=== PATIENT | male | born 1945 | race Two or more races ===

== ENCOUNTER 2022-07-25 19:25 | Emergency (ER) | payer MEDICARE, MEDICAID ==
[~2022-07-25] VITALS: Ht 182.9 cm; Wt 77.3 kg
[~2022-07-25 19:25] MED LIST: AMLO-139 PO; CHOL200074 PO; FLO0.4C PO; METF500T PO; PANT40TA54 PO; PRAV20TA4 PO; PRED5TAB PO; QUET25TA PO; TRAM50TA2 PO; VALS1TAB4 PO
[2022-07-25] MEDS ORDERED: normal saline 1000ML IV soln IVB ONE (20:50)
[2022-07-25 21:28] LABS: BASOPHILS % (AUTO) 0.5 % (0-1); EOSINOPHILS % (AUTO) 0.4 % (0-6); HEMATOCRIT 42.1 % (42.0-52.0); HEMOGLOBIN 14.4 g/dl (14.0-17.9); LYMPHOCYTES # (AUTO) 0.9 X10'3 (1.1-4.8); LYMPHOCYTES % (AUTO) 12.3 % (21-51); MEAN CORPUSCULAR HEMOGLOBIN 30.7 PG (27.0-31.0); MEAN CORPUSCULAR HGB CONC 34.3 g/dL (33.0-36.5); MEAN CORPUSCULAR VOLUME 89.8 FL (78-98); MEAN PLATELET VOLUME 8.5 FL (7.4-10.4); MONOCYTES # (AUTO) 0.8 X10'3 (0-0.9); MONOCYTES % (AUTO) 10.5 % (2-12); NEUTROPHILS # (AUTO) 5.8 X10'3 (1.8-7.7); NEUTROPHILS % (AUTO) 76.3 % (42-75); PLATELET COUNT 158 X10'3 (140-440); RED BLOOD COUNT 4.69 X10'6 (4.70-6.10); RED CELL DISTRIBUTION WIDTH 14.5 % (11.5-14.5); WHITE BLOOD COUNT 7.6 X10'3 (4.5-11.0)
[2022-07-25 21:43] LABS: ALANINE AMINOTRANSFERASE 27 U/L (12-78); ALBUMIN 3.7 G/DL (3.4-5.0); ALBUMIN/GLOBULIN RATIO 1.1 (1.1-1.5); ALKALINE PHOSPHATASE 90 IU/L (46-116); ANION GAP 5 (8-16); ASPARTATE AMINO TRANSFERASE 22 U/L (10-37); BILIRUBIN,TOTAL 0.5 MG/DL (0.1-1.0); BLOOD UREA NITROGEN 23 MG/DL (7-18); BUN/CREATININE RATIO 21.7 (10.0-20.0); CALCIUM 8.9 MG/DL (8.5-10.1); CHLORIDE 103 MMOL/L (99-107); CREATININE 1.06 MG/DL (0.60-1.10); GLUCOSE 145 MG/DL (70-104); POTASSIUM 3.8 MMOL/L (3.5-5.1); SODIUM 135 MMOL/L (135-145); TOTAL CARBON DIOXIDE 26.8 MMOL/L (24-32); eGFR 68 ML/MIN
[2022-07-25 21:46] LABS: CREATINE KINASE 338 U/L (39-308)
[2022-07-25 21:55] LABS: CLARITY,URINE SLIGHTLY CLOUDY (Clear); COLOR,URINE YELLOW (Yellow); GLUCOSE, URINE NEGATIVE (Neg); KETONES,URINE NEGATIVE (Neg); LEUKOCYTE ESTERASE ,URINE MODERATE (Neg); NITRITES, URINE NEGATIVE (Neg); OCCULT BLOOD,URINE TRACE-INTACT (Neg); PROTEIN,URINE TRACE mg/dl (Neg); UROBILINOGEN,URINE 0.2 E.U/dL (0.2-1.0)
[2022-07-25 21:56] LABS: UA COLLECTION TYPE URINAL
[2022-07-25 22:01] LABS: BACTERIA,URINE 4+ /HPF (Neg); MUCUS STRANDS FEW /LPF (Neg); RBC,URINE 0-2 /HPF (0-2); SQUAMOUS EPITHELIAL CELL,UR FEW /LPF (FEW); TRANSITIONAL EPI CELLS,URINE FEW /HPF; WBC,URINE TNTC /HPF (0-4)
[2022-07-25] MEDS ORDERED: CefTRIAXone/D5W-Rocephin 1gm 50 ML IV ONE (22:25)
[2022-07-25] MEDS ORDERED: CEPH250T PO (22:50)
[2022-07-25 23:03] VITALS: BP 129/75
[2022-07-26] MEDS ORDERED: CefTRIAXone/D5W-Rocephin 1gm 50 ML IV SCH (08:00)
== END 2022-07-25 23:05 | disposition home or self-care (01) ==
LOC: ER 19:25
DX: R53.1 Weakness (principal); N39.0 Urinary tract infection, site not specified; R41.0 Disorientation, unspecified; R55 Syncope and collapse; E11.9 Type 2 diabetes mellitus without complications; Z79.899 Other long term (current) drug therapy; Z79.1 Long term (current) use of non-steroidal anti-inflammatories (NSAID); Z79.2 Long term (current) use of antibiotics
CPT/HCPCS: 36415; 70450; 71045; 80053; 81001; 82550; 84484; 85025; 87077; 87088; 87186; 93005; 96361; 96365; 99285; J0696; J7030

== ENCOUNTER 2023-04-06 09:22 | Outpatient (CLI) | payer MEDICARE, MEDICAID ==
[~2023-04-06] VITALS: Ht 218.4 cm; Wt 77.0 kg
[2023-04-06] VITALS (7 sets, daily range): BP systolic 128–153; BP diastolic 65–70; PULSE 63–89; RESP 18; O2SAT 100
[2023-04-06] MEDS ORDERED: aminophylline 250mg/10ml inj. IV PRN (10:55)
[2023-04-06] MEDS ORDERED: regadenoson 0.4mg/5ml syringe IV ONE (10:55)
[2023-04-06] MEDS ORDERED: nitroGLYCERIN 0.4mg SUBLingual tab SL PRN (10:55)
== END 2023-04-06 23:59 | disposition home or self-care (01) ==
LOC: NM 09:22
PROVIDERS: ATTEND Internal Medicine Interventional Cardiology
DX: R06.02 Shortness of breath (principal); R07.2 Precordial pain
CPT/HCPCS: 78452; 93017; A9500; J2785

== ENCOUNTER 2025-02-15 14:52 | Inpatient (IN) | payer MEDICARE, MEDICAID ==
[~2025-02-15] VITALS: Ht 175.3 cm; Wt 71.7 kg
[~2025-02-15 14:52] MED LIST changes: -FLO0.4C PO; +PRAV20TA17 PO; -PRAV20TA4 PO; +TAMS-55 PO
--- NOTE | 2025-02-15 15:01 | ELECTROCARDIOGRAPH REPORT ---
[facility] Test Date: 2025-02-15 Test Time: 14:56:26 Pat Name: NOAH WALKER Department: EMERGENCY ROOM Room: ED 8 Gender: M [employer]: CORY : 1945 Requested By: MIKEL MATA Order Number: [id number] Reading MD: Dr. Marcelino Trejo Measurements Intervals [place] Rate: 105 P: 63 MA: 177 QRS: 18 QRSD: 91 T: 25 QT: 344 QTc: 455 Interpretive Statements Sinus tachycardia Electronically Signed On 02-15-2025 18:10:[address] Marcelino Trejo Please click the below link to view image of tracing.
[2025-02-15 15:20] LABS: MEAN PLATELET VOLUME 9.0 FL (7.4-10.4); RED CELL DISTRIBUTION WIDTH 14.3 % (11.5-14.5)
[2025-02-15 15:31] LABS: CREATININE 0.98 MG/DL (0.60-1.10); TOTAL CARBON DIOXIDE 23.4 MMOL/L (24-32); eCRCL 54 ML/MIN; eGFR 74 ML/MIN
[2025-02-15 15:39] LABS: LEUKOCYTE ESTERASE ,URINE SMALL (Neg); NITRITES, URINE NEGATIVE (Neg); OCCULT BLOOD,URINE MODERATE (Neg)
[2025-02-15] MEDS: normal saline 1000ml 1,000 ML IV ONE ×2 (15:41→18:34)
[2025-02-15 15:42] LABS: PRO BRAIN NATRIURETIC PEPTIDE 443 PG/ML (0-450)
[2025-02-15 15:45] LABS: UA COLLECTION TYPE FOLEY CATH
[2025-02-15 15:47] LABS: MUCUS STRANDS NONE SEEN /LPF (Neg); SQUAMOUS EPITHELIAL CELL,UR NONE SEEN /LPF (FEW); WBC CLUMPS,URINE MANY /HPF (NEGATIVE)
--- NOTE | 2025-02-15 15:48 | RADIOLOGY REPORT ---
CHEST RADIOGRAPH Indication: CP Technique: Single frontal view of the chest was obtained Comparison: CHEST,SINGLE VIEW on DOS: 07/25/22, CHEST,SINGLE VIEW on DOS: 10/16/20 FINDINGS: Lines and Tubes: None Lungs: Blunting of the left costophrenic angle. Bronchovascular crowding due 2 low lung volumes. No pneumothorax. Cardiomediastinal contours: Size is within Normal limits with Mild atherosclerotic calcification and uncoiling of the aorta. Bones: No acute osseous abnormality. IMPRESSION: Blunting of the left costophrenic angle which may be from epicardial fat pad /trace effusion /atelectasis.
--- NOTE | 2025-02-15 15:48 | RADIOLOGY REPORT ---
DI SHOULDER, COMPLETE (MIN 2 VWS), left. Indication: 79 years old, Male; Shoulder Pain. Comparison: None Findings: No acute fracture or dislocation. Degenerative changes of AC joint and glenohumeral joint. IMPRESSION: NO ACUTE FRACTURE OR DISLOCATION.
[2025-02-15] MEDS: CefTRIAXone/D5W-Rocephin 1gm 50 ML IV ONE (16:07)
[2025-02-15] MEDS ORDERED: ondansetron/PF 4mg/2ml inj IV PRN (17:15)
[2025-02-15] MEDS: CefTRIAXone/D5W-Rocephin 1gm 50 ML IV SCH (17:35)
[2025-02-15 17:49] LABS: APTT 26 SECONDS (22-32); INR 1.0 INR
[2025-02-15 17:58] LABS: CHOL/HDL RATIO 4.7 (0.00-4.99); LDL CHOLESTEROL 56 MG/DL (50-100)
--- NOTE | 2025-02-15 17:58 | HISTORY AND PHYSICAL-Residence ---
History & Physical Providers to CC Resident Creating Document: YENNY ISIDRO, RES CC: ASHLEY MONAHAN MD ~ History of Present Illness Primary Medical Doctor: [facility] Reason for Admit\Complaint: Mechanical fall, rhabdomyolysis, UTI History of Present Illness An 79-year-old male patient who lives by himself was brought to the ED by his daughter after he was found lying on his floor. Patient's daughter last spoke with him yesterday evening and since then he was not answering any calls and she visited him and found him lying on the floor. Patient did not lose consciousness and was awake when his daughter came. Patient stated that he was trying to get up from his wheelchair but lost balance and fell on the ground but could not get himself up nor could he answer his phone which was little away from him. Patient denied any chest pain,, shortness of breath , loss of consciousness and syncopal attacks. His past medical history includes hypertension, hyperlipidemia, diabetes mellitus on oral hypoglycemics. Patient has an indwelling catheter and is wheelchair-bound most of the time Patient lives by himself, uses a walker for moving around the house and uses a wheelchair for other activities. Patient's daughters stays across the street and visits him once a while, patient has home health services who come visit with the patient change his catheter as required. Patient's daughter is his I HSS Patient's primary care doctor is from [facility], patient's seafood packer is Dr. Bridgette Ceja Patient visits Dr. Ceja once every year for regular cardiac checkup. He was admitted in 2023 with chest pain and a Lexiscan was done at the point which was negative Allergies: Coded Allergies: No Known Allergies (Unverified , 07/25/22) Home Medications Home Medications Active Pantoprazole Sodium 40 Mg Tablet. 40 Mg PO BKF Reported Diovan Hct 160-12.5 mg Tab (Valsartan/Hydrochlorothiazide) 1 Each Tablet 1 Tab PO BID 30 Days Amlodipine-Benazepril 10/40 MG* (Amlodipine/Benazepril HCl) 10 Mg/40 Mg Capsule 1 Cap PO DAILY Pravastatin Sodium 20 Mg Tablet 1 Tab PO DAILY 30 Days Glucophage* (Metformin HCl) 500 Mg Tablet 1 Tab PO TID Prednisone* (Prednisone) 5 Mg Tablet 4 Tab PO DAILY Vitamin D3 (Cholecalciferol (Vitamin D3)) 50 Mcg Capsule 1 Cap PO DAILY 30 Days Flomax* (Tamsulosin HCl) 0.4 Mg Cap.sr.24h 1 Cap PO DAILY 30 Days Tramadol Hcl (Tramadol HCl) 50 Mg Tablet 1 Tab PO BID 30 Days Seroquel (Quetiapine Fumarate) 25 Mg Tablet 1 Tab PO DAILY Past Medical History Past Medical History Hypertension Hyperlipidemia Diabetes mellitus on oral hypoglycemics Insomnia Past Surgical History Surgical History Comment Abdominal surgery in 2019 for an abscess removal in his liver Patient had a back surgery two years ago, unsure about what exactly was the procedure Past Social History Social History Comment Patient lives by himself, his daughter lives across stated in visited with the patient Patient uses a walker for short distances and wheelchair for longer distances Patient smokes 1-2 cigarettes per day, used to smoke about 5-6 cigarettes for the last 40 years decrease it to 1-2 cigarettes Patient stopped drinking in 1999, used to occasionally drink alcohol before that Patient denied any other illicit drug use Lives with: Alone Lives In: Home ROS ROS Constitutional: No fever, dizziness, weakness noted, no decrease in appetite HEENT: Normal vision. No sore throat, epistaxis, tinnitus Cardiovascular: Mild chest pain/discomfort, no palpitations, syncope. no pedal edema Respiratory: No sob, cough,hemoptysis Gastrointestinal: No abdominal pain, nausea, vomiting. No diarrhea, melena. Genitourinary: No frquency, urgency, incontinence, nocturia. No dysuria, hematuria Musculoskeletal: Wasting of lower extremities, bilateral chronic venous stasis of lower extremities Endocrine: No fatigue, polydipsia, polyuria. No heat or cold intolerance Neurologic: No headache, vertigo. No weakness, numbness or tingling of extremities, mild confusion noted Psychiatric: No hallucinations/delusions, no anhedonia, no suicidal ideation Hematologic: Bruises present on chest left shoulder,bilateral knees Exam Vitals: Vital Signs Date Time Temp Pulse Resp B/P (MAP) Pulse Ox O2 Delivery O2 Flow Rate FiO2 02/15/25 17:13 19 02/15/25 16:59 98.1 97 97 0 02/15/25 15:28 Room Air* 21 General: General: A and O x1, patient appears mildly confused, hard of hearing HEENT: Conjunctive are pink, sclerae clear, no icterus, pupil is equal in both sides, arcus senilis, right occipital swelling Neck: Supple, no JVD, no lymphadenopathy and thyromegaly. Chest: [place] shaped chest,Equal air entry on both lungs, no additional sounds no rhonchi no wheezing at the moment. Cardiovascular: S1-S2 regular sinus rhythm and, tachycardic, no gallops, no rubs, no murmurs Abdomen: No visible peristalsis, Bowel sounds present on auscultation, soft, no tenderness, no guarding, no rigidity midline abdominal scar present Extremities: Bilateral lower extremities wasting, chronic venous stasis Neurologic: Could not examined completely he as patient is mildly confused Mental status: alert and conscious, oriented to himself, mildly confused Cranial nerves I-XII: Normal. Motor system: Preserved power, coordination, bilateral tremors noted, strength 5/5 in four extremities. Sensory system: Preserved temperature, pain and vibration sensation. 2+ deep tendon reflexes in biceps, triceps, quadriceps. Negative Babinski. Cerebellar: No nystagmus, dysdiadochokinesia, normal [id number] testing. Musculoskeletal: Bilateral eugenia's and Heberden's nodules noted Skin: Multiple bruises noted on chest, left shoulder bilateral knees Diagnostic Data Last Recorded Lab Results: 02/15/25 1509 02/15/25 1509 Diagnostic Data: Laboratory Tests Test 02/15/25 15:09 Prothrombin Time 10.5 SECONDS (9.0-12.0) INR International Normalized Ratio 1.0 INR Activated Partial Thromboplast Time 26 SECONDS (22-32) D-Dimer 4.36 MG/L FEU (0-0.50) H D-Dimer Comment Coagulation Comments Advance Care Planning Advanced Care plannin - 30 Minutes (Spent 17 minutes discussing advanced care planning/resuscitative methods with the patient and his daughter they decided that they wanted the patient to be a full code) Additional Plan 1. Sepsis 2/2 Urinary tract infection, chronic indwelling catheter in place SIRS criteria met(HR> 90, RR >20) Patient has chronic indwelling catheter in place due to neurogenic bladder WBCs normal limits, urinalysis reported occult blood, small leukocyte esterase and too many to count WBC, urine bacteria 4+ Patient has chronic indwelling catheter was changed on Monday but appears cloudy, turbid and urine appeared brownish Lactic acid within normal limits Plan Ordered blood cultures, urine cultures, inflammatory markers Initiated the patient on fluid resuscitation as per sepsis protocol, continue normal saline at 100 mL/hour Initiated the patient on IV ceftriaxone 1 g D5W 50 mL@ 100 mL/hour; Culturelle b.i.d. We will adjust antibiotics based on sensitivities Requested nurse for change of patient's Grey's catheter, orders in place 2. Acute metabolic encephalopathy 2/2 CAUTI chronic indwelling catheter in place, mechanical fall Patient is alert and oriented x1, Chest x-ray was normal not have any acute fractures, shoulder x-ray no acute fractures noted Plan Ordered CT head to rule out any head injury, ordered D-dimer Fall precautions in place, ordered orthostatic vitals We will continue to monitor patient's mentation 3. Rhabdomyolysis Secondary to mechanical fall Patient's creatinine kinase is elevated at 3000, alk phosphatase is elevated 122 Chest x-ray, shoulder x-ray negative for any kind of fractures, multiple bruises on chest left shoulder bilateral knees Troponins negative, patient's EKG is normal showing sinus tachycardia No electrolyte abnormalities noted Plan Continue IV fluids, watch out for electrolyte abnormalities Fall precautions in place 4. Hypertension Patient has a history of hypertension, patient is on home medication amlodipine 10 mg, valsartan/hydrochlorothiazide 160-12.5 mg tab We will resume once med rec is done 5. Hyperlipidemia Continue patient's home medication pravastatin 20 mg from tomorrow 6. Type 2 diabetes mellitus on oral hypoglycemic Patient is on home medication metformin 500 mg t.i.d. Plan Initiated the patient on hyperglycemia hypoglycemic protocol, ordered HbA1c 60 g carb controlled diet in place 7. History of insomnia Patient is on home medications Seroquel 25 mg once daily Hold patient's Seroquel for tonight as patient has metabolic encephalopathy currently 8. Benign prostatic hyperplasia Continue patient's home medication tamsulosin 0.4 mg once med rec is done 9. History of back pain, status post surgery in 2022(unsure about what surgery) Continue patient's home medication tramadol 50 mg b.i.d. from tomorrow once patient's mentation improves 10. History of neurogenic bladder Chronic indwelling catheter 11. Active nicotine use disorder Discussed smoking cessation with the patient including the risk continued smoking with the patient including: lung cancer, stroke, heart attack and poor wound healing. Initiated the patient on nicotine patch 12. Social concerns: Patient lives by himself, uses a walker for short distances wheelchair for longer distances. Patient has had chronic back pain for a while and used to get pain injections from [facility], during one of the episode patient lost control of his bladder, post which he underwent MRI- which showed he had possible disc prolapse and neurogenic bladder Code Status: Full code DVT Prophylaxis: Lovenox Lines/Tubes: PIV Nutrition: 2 g salt restricted diet/60 g carb controlled diet PT:yes Prognosis: Guarded POA: Daughter ERIC [phone], patient has another daughter who is his IHSS, patient also has home services Disposition: We will continue to monitor the patient, follow up with inflammatory markers, CT head. Med rec pending The above note has been reviewed and supervised by the senior resident PGY 2/PGY 3. Patient was seen and examined and discussed with attending physician Dr.Bawa Yenny Isidro MD Internal medicine resident,PGY-1 Date of Service: Feb 15, 2025 Billing Provider: ASHLEY MONAHAN MD, JAHNAVI, RES Feb 15, 2025 17:58
[2025-02-15] MEDS: PERFLUTREN PROTEIN-A MICROSPHR (Optison) 0.22 MG/ML 3ML VIAL IV ONE (18:09)
[2025-02-15 18:21] LABS: PHOSPHORUS 4.3 MG/DL (2.3-4.5)
[2025-02-15] MEDS: LidoCAINE 2% Topical Jelly 11mL syringe (UROJET) TOP ONE (18:27)
[2025-02-15] MEDS: normal saline 1000ml 1,000 ML IV SCH (18:27)
--- NOTE | 2025-02-15 18:31 | RADIOLOGY REPORT ---
COMPUTERIZED TOMOGRAPHY OF THE HEAD WITHOUT CONTRAST REASON FOR STUDY: head hit post fall COMPARISON: CT HEAD on DOS: 07/25/22 TECHNIQUE: Helical tomographic scans were obtained through the brain. 2-D coronal and sagittal reformatted images are provided. Radiation optimization: All CT scans at this facility use at least one of these dose optimization techniques: Automated exposure control mA and/or kV adjustment per patient size (includes targeted exams where dose is matched to clinical indication) or iterative reconstruction. RADIATION DOSE: CTDI: 65 mGy DLP: 1194 mGy-cm FINDINGS: No suspicious intracranial hyperdensity to suggest acute blood. There are old lacunar infarcts in bilateral basal ganglia. There is no mass effect nor midline shift. There is moderate generalized volume loss with compensatory enlargement of the CSF spaces. There is no hydrocephalus. The suprasellar cistern is intact. There are scattered periventricular and deep white matter hypodensities that are most consistent with chronic microangiopathic changes. There is old right parietal craniotomy. There is surgical repair hardware in the left face. The visualized mastoid air cells and paranasal sinuses are clear. There is right occipital scalp swelling. IMPRESSION: Right occipital scalp swelling. Moderate generalized volume loss with chronic small vessel ischemic change. No acute intracranial abnormality. 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 Old right parietal craniotomy.
[2025-02-15 19:15] VITALS: BP 168/91; PULSE 104; RESP 17; TEMP 97.8; O2SAT 95
[2025-02-15] MEDS: HYDROmorphone inj. 0.5 MG/0.5 ML DISP.SYRIN IV PRN (19:28)
[2025-02-15] MEDS: lactobacillus rhamnosus 10,000 MMU CELLS/CAPSULE PO SCH (19:28)
[2025-02-15 20:00] VITALS: BP_SYST 164; BP_SYST 170; BP_DIAS 92; BP_DIAS 93; PULSE 102; PULSE 103; RESP 17; O2SAT 95
[2025-02-15] MEDS ORDERED: TOLT4CAP28 PO (20:07)
[2025-02-15] MEDS ORDERED: METO25TA6 PO (20:07)
[2025-02-15] MEDS ORDERED: DULO60CA65 PO (20:07)
[2025-02-15] MEDS ORDERED: NITR0.3T10 (20:07)
[2025-02-15] MEDS ORDERED: DAPA10TA7 PO (20:07)
[2025-02-15] MEDS: INSULIN LISPRO 100 UNIT/ML INSULN.PEN MULTI-DOSE SQ SCH (21:21)
[2025-02-16] VITALS (8 sets, daily range): BP systolic 134–166; BP diastolic 81–91; PULSE 85–99; RESP 16–19; TEMP 98–98.8; O2SAT 93–96
[2025-02-16] MEDS: HYDROcodone/acetaminophen 5mg/325mg tablet PO PRN (02:38)
[2025-02-16 05:56] LABS: CREATININE 0.70 MG/DL (0.60-1.10); TOTAL CARBON DIOXIDE 25.4 MMOL/L (24-32); eCRCL 84 ML/MIN; eGFR > 90 ML/MIN
[2025-02-16 06:00] LABS: MEAN PLATELET VOLUME 8.7 FL (7.4-10.4); RED CELL DISTRIBUTION WIDTH 14.5 % (11.5-14.5)
--- NOTE | 2025-02-16 06:18 | Physician Documentation ---
History of Present Illness ~ Chief Complaint: Mechanical Fall Stated Complaint: FALL Time Seen by MD: 15:02 Primary Medical Doctor: [facility] Mode of Arrival: EMS HPI An 79-year-old male patient who lives by himself was brought to the ED by his daughter after he was found lying on his floor. Patient's daughter last spoke with him yesterday evening and since then he was not answering any calls and she visited him and found him down. Patient did not lose consciousness and was awake. Patient stated that he was trying to get up from his wheelchair but lost balance and fell on the ground but could not get himself up nor could he answer his phone. Patient denied any chest pain,, shortness of breath , loss of consc iousness and reports he may have been there for several days. His past medical history includes hypertension, hyperlipidemia, diabetes mellitus on oral hypoglycemics. Patient has an indwelling catheter and is wheelchair-bound., Tetanus within 5 Years?: Yes Medication Reconciliation Allergies: Coded Allergies: No Known Allergies (Unverified , 07/25/22) Scheduled Amlodipine Besylate/Benazepril 10/40 MG* (Amlodipine-Benazepril 10/40 MG*), 1 CAP PO DAILY, (Reported) Dapagliflozin Propanediol (Dapagliflozin), 1 PO DAILY, (Reported) Duloxetine HCl (Duloxetine HCl), 1 CAP PO DAILY, (Reported) Metformin Hcl* (Glucophage*), 1 TAB PO TID, (Reported) Metoprolol Tartrate (Metoprolol Tartrate), 1 TAB PO Q12H, (Reported) Pantoprazole Sodium (Pantoprazole Sodium), 40 MG PO BKF Pravastatin Sodium (Pravastatin Sodium), 1 TAB PO DAILY, (Reported) Quetiapine Fumarate (Seroquel), 1 TAB PO DAILY, (Reported) Tolterodine Tartrate (Tolterodine Tartrate ER), 1 CAP PO DAILY, (Reported) Valsartan/Hydrochlorothiazide (Diovan Hct 160-12.5 mg Tab), 1 TAB PO BID, (Reported) Scheduled PRN Nitroglycerin (Nitroglycerin), 1 PRNCP PRN for chest pain, (Reported) Discontinued Medications Cholecalciferol (Vitamin D3) (Vitamin D3), 1 CAP PO DAILY, (Reported) Discontinued Reason: patient no longer taking Prednisone* (Prednisone*), 4 TAB PO DAILY, (Reported) Discontinued Reason: patient no longer taking Tamsulosin Hcl* (Flomax*), 1 CAP PO DAILY, (Reported) Discontinued Reason: patient no longer taking Tramadol Hcl (Tramadol Hcl), 1 TAB PO BID, (Reported) Discontinued Reason: patient no longer taking Past Medical History Past Medical History: Diabetes Past Surgical History: noncontributory Patient History: Patient reports no known family medical history. Smoking Status: Current every day smoker Lives with: Alone Lives In: Home Review of Systems All Other Systems at this time: Reviewed and Negative Physical Exam Vital Signs: RN Vital Signs have been reviewed: Yes, Temperature: 97.8, Source: Oral, Heart Rate: 103, Respiratory Rate: 17, BP: 164/92, Pulse Oximetry: 95, Weight: 71.700 Oxygen Flow Rate: 0 Physical Exam General: A and O x1, patient appears mildly confused, hard of hearing HEENT: Conjunctive are pink, sclerae clear, no icterus, pupil is equal in both sides, reactive to light, no ear discharge, no pharyngeal erythema or an edema. Neck: Supple, no JVD, no lymphadenopathy and thyromegaly. Chest: Equal air entry on both lungs, no additional sounds no rhonchi no wheezing at the moment. Cardiovascular: tachycardic, no gallops, no rubs, no murmurs Abdomen:Bowel sounds present on auscultation, soft, no tenderness, no guarding, no rigidity midline abdominal scar present Extremities: Bilateral lower extremities wasting, chronic venous stasis Neurologic: alert and conscious, oriented to himself, mildly confused, otherwise following commands and nonfocal Musculoskeletal: baseline contractures Skin: Multiple bruises noted on chest, left shoulder bilateral knees Progress Results/Orders Results/Orders Orders - MIKEL MATA MD Chest,Single View (02/15/25 14:59) Monitor (02/15/25 14:59) Saline Lock (02/15/25 14:59) Oxygen (02/15/25 14:59) Electrocardiogram (02/15/25 14:59) Shoulder, Complete (Min 2 Vws) (02/15/25 15:00) Cult Urine + [address] (02/15/25 15:45) Page Hospitalist (02/15/25 16:12) Completed Orders - MIKEL MATA MD Chest,Single View (02/15/25 14:59) Cbc/Diff (02/15/25 14:59) PBNP (02/15/25 14:59) Electrocardiogram (02/15/25 14:59) Hs Troponin I W Calculations (02/15/25 14:59) Hs Troponin I W Calculations (02/15/25 16:59) Hs Troponin I W Calculations (02/15/25 17:59) CMP (02/15/25 14:59) CK (02/15/25 14:59) LA (02/15/25 14:59) Shoulder, Complete (Min 2 Vws) (02/15/25 15:00) Normal Saline 1000ml (0.9% Sodium Chlori (02/15/25 15:15) Ua W/Microscopic, Cult If Ind (02/15/25 15:25) Ceftriaxone/S3h-Oxfejrsl 1gm (Rocephin 1 (02/15/25 16:00) Hgb A1c (02/15/25 15:09) Lipid Panel (02/15/25 15:09) Vital Signs 02/15/25 02/15/25 02/15/25 02/15/25 14:55 15:28 15:29 16:11 Temp 98.8 Pulse 104 101 98 Resp 18 17 25 B/P (MAP) 158/91 153/91 (111) 157/84 (108) Pulse Ox 98 96 96 97 O2 Delivery Room Air* O2 Flow Rate 0 0 0 0 FiO2 21 Laboratory Tests Test 02/15/25 15:09 02/15/25 15:25 White Blood Count 9.2 Red Blood Count 4.98 Hemoglobin 15.6 Hematocrit 45.5 Mean Corpuscular Volume 91.3 Mean Corpuscular Hemoglobin 31.4 H Mean Corpuscular Hemoglobin Concent 34.4 Red Cell Distribution Width 14.3 Platelet Count 142 Mean Platelet Volume 9.0 Neutrophils (%) (Auto) 83.1 H Lymphocytes (%) (Auto) 8.0 L Monocytes (%) (Auto) 8.7 Eosinophils (%) (Auto) 0.1 Basophils (%) (Auto) 0.1 Neutrophils # (Auto) 7.7 Lymphocytes # (Auto) 0.7 L Monocytes # (Auto) 0.8 Eosinophils # (Auto) 0.0 Basophils # (Auto) 0.0 CBC Comment Prothrombin Time 10.5 INR International Normalized Ratio 1.0 Activated Partial Thromboplast Time 26 D-Dimer 4.36 H D-Dimer Comment Coagulation Comments Sodium Level 141 Potassium Level 3.7 Chloride Level 105 Carbon Dioxide Level 23.4 L Anion Gap 13 Blood Urea Nitrogen 25 H Creatinine 0.98 Estimated GFR/1.73 m2 74 BUN/Creatinine Ratio 25.5 H Glucose Level 122 H Hemoglobin A1c 5.8 Lactic Acid Level 1.0 Calcium Level 9.1 Total Bilirubin 0.9 Aspartate Amino Transf (AST/SGOT) 89 H Alanine Aminotransferase (ALT/SGPT) 47 Alkaline Phosphatase 122 H Total Creatine Kinase 3274 H Troponin I High Sensitivity 23 Pro-B-Type Natriuretic Peptide 443 Total Protein 8.0 Albumin 3.8 Globulin 4.2 Albumin/Globulin Ratio 0.9 L Triglycerides Level 162 H Cholesterol Level 132 LDL Cholesterol 56 HDL Cholesterol 28 L Cholesterol/HDL Ratio 4.7 Procalcitonin 4.96 H Chemistry Comments Urine Specimen Description Grey cath Urine Color Yellow Urine Clarity Turbid Urine pH 8.5 Urine Specific Felch 1.015 Urine Protein >=300 H Urine Glucose (UA) 500 H Urine Ketones 15 H Urine Occult Blood Moderate H Urine Nitrite Negative Urine Bilirubin Negative Urine Urobilinogen 0.2 Urine Leukocyte Esterase Small H Urine RBC 10-20 Urine WBC Tntc H Urine WBC Clumps Many Urine Squamous Epithelial Cells None seen Urine Bacteria 4+ Urine Mucus None seen Urine Culture Indicated Indicated Volume Urine Centrifuged 10 ml Urine Comment Microbiology Date/Time Source Procedure Growth Status 02/15/25 15:45 Urine Grey Cath Urine Culture - Preliminary Culture received. Resulted Medical Decision Making Additional information obtaine: N/A Findings 79 year old male found on floor, mildly confused. Workup consistent with UTI and metabolic encephalopathy as well as mild rhabdomyolysis. IVF and ABx, care transferred to hospitalist. Differential Dx:Considerations: Include: Fracture(s), Pneumothorax, Abrasion(s), Contusion(s), Hematoma(s), Encephalopathy Additional Comment Ddx includes rhabdomyolysis Departure Disposition: ADMITTED INPATIENT Admitted to Inpatient Unit: to hospitalist Admission Level of Care: Med/Surg Impression: Primary Impression: UTI (urinary tract infection) Additional Impressions: Metabolic encephalopathy Rhabdomyolysis Condition: Stable Referrals: NO PRIMARY CARE PROVIDER (PCP) Education Educated: Patient Educated regarding: diagnosis, treatment, prognosis, need for follow up Signature Scribe Signature: . Attestation: . MIKEL MATA MD Feb 16, 2025 06:18
[2025-02-16] MEDS ORDERED: AMLO10TA PO (07:43)
[2025-02-16] MEDS: duloxetine 30mg CAPSULE.DR PO SCH (07:43)
[2025-02-16] MEDS ORDERED: VALS320T17 PO (07:43)
[2025-02-16] MEDS: enoxaparin 40mg/0.4ml syringe SUBCUT SCH (07:46)
[2025-02-16] MEDS: tolterodine 2mg SR capsule (24hr) PO SCH (09:39)
[2025-02-16] MEDS ORDERED: potassium Cl 20 mEq SR tablet PO PRN (11:40)
[2025-02-16] MEDS ORDERED: potassium Cl 40MEQ/1/2NS 520ml 520 ML IV PRN (11:40)
[2025-02-16] MEDS ORDERED: magnesium sulf-water 4G/100mL 100 ML IV PRN (11:40)
[2025-02-16] MEDS ORDERED: magnesium Cl slow-release 64mg tablet PO PRN (11:40)
[2025-02-16] MEDS: potassium Cl 20 mEq SR tablet PO PRN (11:58)
--- NOTE | 2025-02-16 13:24 | PROGRESS NOTE- Residence ---
Progress Note - Resident Providers to CC Resident Creating Document: YENNY ISIDRO RES CC: ASHLEY MONAHAN MD ~ Antibiotic Timeout Antibiotic Ordered?: Yes Subjective Patient is seen and examined at bedside, significant improvement in mentation compared to yesterday. Patient complains of mild pain left shoulder post a fall which is bruised as well, shoulder x-ray ruled out fracture. Patient stated no other acute active symptoms Objective Vital Signs Date Time Temp Pulse Resp B/P (MAP) Pulse Ox O2 Delivery O2 Flow Rate FiO2 02/16/25 10:00 98.0 94 16 166/90 (115) 95 Room Air 02/15/25 16:59 0 02/15/25 15:28 21 Result Diagram: 02/16/25 0454 02/16/25 0454 General: Patient is alert and oriented x 4, significant improvement in mentation HEENT: Conjunctive are pink, sclerae clear, no icterus, pupil is equal in both sides, arcus senilis, right occipital swelling Neck: Supple, no JVD, no lymphadenopathy and thyromegaly. Chest: [place] shaped chest,Equal air entry on both lungs, no additional sounds no rhonchi no wheezing at the moment. Cardiovascular: S1-S2 regular sinus rhythm and, regular rate, no gallops, no rubs, no murmurs Abdomen: No visible peristalsis, Bowel sounds present on auscultation, soft, no tenderness, no guarding, no rigidity midline abdominal scar present Extremities: Bilateral lower extremities wasting, chronic venous stasis Neurologic: Mental status: alert and conscious Cranial nerves I-XII: Normal. Motor system: Preserved power, coordination, bilateral tremors noted, strength 5/5 in four extremities. Left shoulder unable to exhibit any movement due to a fall Sensory system: Preserved temperature, pain and vibration sensation. 2+ deep tendon reflexes in biceps, triceps, quadriceps. Negative Babinski. Cerebellar: No nystagmus, dysdiadochokinesia, normal [id number] testing. Musculoskeletal: Bilateral eugenia's and Heberden's nodules noted Skin: Multiple bruises noted on chest, left shoulder bilateral knees Coagulation Studies Laboratory Tests Test 02/15/25 15:09 Prothrombin Time 10.5 SECONDS (9.0-12.0) INR International Normalized Ratio 1.0 INR Activated Partial Thromboplast Time 26 SECONDS (22-32) D-Dimer 4.36 MG/L FEU (0-0.50) H D-Dimer Comment Coagulation Comments Advance Care Planning Advanced Care plannin - 30 Minutes Plan Plan 1. Sepsis 2/2 Urinary tract infection, chronic indwelling catheter in place SIRS criteria met(HR> 90, RR >20) Patient has chronic indwelling catheter in place due to neurogenic bladder WBCs normal limits, urinalysis reported occult blood, small leukocyte esterase and too many to count WBC, urine bacteria 4+ Patient has chronic indwelling catheter was changed on Monday but appears cloudy, turbid and urine appeared brownish Lactic acid within normal limits, protocol and CRP elevated, Preliminary urine culture report shows Gram-negative rods and Gram-positive cocci Plan Continue normal saline at 100 mL/hour Changed patient's antibiotic from ceftriaxone to meropenem IV q.8h Culturelle b.i.d. We will adjust antibiotics based on sensitivities 2. Acute metabolic encephalopathy 2/2 CAUTI chronic indwelling catheter in place, mechanical fall Patient is alert and oriented, improvement in mentation Chest x-ray was normal not have any acute fractures, shoulder x-ray no acute fractures noted CTA ruled out any acute intracranial abnormality, D-dimer 4.36 Plan Patient continues to have left shoulder pain, ordering MRI of left shoulder Fall precautions in place, ordered orthostatic vitals We will continue to monitor patient's mentation 3. Rhabdomyolysis Secondary to mechanical fall Mild hypokalemia Patient's creatinine kinase slowly downtrending is at 2192 today, alk phosphatase is elevated 122 Chest x-ray, shoulder x-ray negative for any kind of fractures, multiple bruises on chest left shoulder bilateral knees Troponins negative, patient's EKG is normal showing sinus tachycardia Plan Continue IV fluids Hypokalemia being replaced as per protocol Fall precautions in place 4. Hypertension Patient has a history of hypertension, continue patient's home medication valsartan 320 mg-not available in the pharmacy so converted to losartan 100 mg, metoprolol 25 mg q.12h, amlodipine 10 mg Echocardiogram reported normal EF of 60-65% 5. Hyperlipidemia Continue patient's home medication pravastatin 20 mg from tomorrow; pravastatin unavailable in the pharmacy Continue atorvastatin 5 mg p.o. daily 6. Type 2 diabetes mellitus on oral hypoglycemic Patient is on home medication metformin 500 mg t.i.d. and held patient's home medication dapagliflozin 10 mg in view of his UTI and indwelling catheter HGB A1c well controlled and within normal limits, 5.7 Plan Initiated the patient on hyperglycemia hypoglycemic protocol, 60 g carb controlled diet in place 7. History of insomnia Patient is on home medications Seroquel 25 mg once daily Continue Seroquel 25 mg once daily 8. Benign prostatic hyperplasia Continue patient's home medication tamsulosin 0.4 mg 9. History of back pain, status post surgery in 2022(unsure about what surgery) Continue patient's home medication tramadol 50 mg b.i.d., duloxetine 60 mg 10. History of neurogenic bladder Chronic indwelling catheter; continue home medication tolterodine tartrate 4 mg once daily 11. Active nicotine use disorder Discussed smoking cessation with the patient including the risk continued smoking with the patient including: lung cancer, stroke, heart attack and poor wound healing. 12. Social concerns: Patient lives by himself, uses a walker for short distances wheelchair for longer distances. Patient has had chronic back pain for a while and used to get pain injections from [facility], during one of the episode patient lost control of his bladder, post which he underwent MRI- which showed he had possible disc prolapse and neurogenic bladder Code Status: Full code DVT Prophylaxis: Lovenox Lines/Tubes: PIV Nutrition: 2 g salt restricted diet/60 g carb controlled diet PT:yes Prognosis: Guarded POA: Daughter ERIC [phone], patient has another daughter who is his IHSS, patient also has home services Disposition: We will continue to monitor the patient, follow up with culture sensitivities. Follow up with MRI. Physical therapy evaluation pending. Anticipate discharge in the next 24-48 hours The above note has been reviewed and supervised by the senior resident PGY 2/PGY 3. Patient was seen and examined and discussed with attending physician Dr.Bawa Yenny Isidro MD Internal medicine resident,PGY-1 Date of Service: Feb 16, 2025 Billing Provider: ASHLEY MONAHAN MD, JAHNAVI, RES Feb 16, 2025 13:24
[2025-02-16] MEDS: meropenem inj 1 GM in normal saline 100ml IV soln 100 ML IV SCH (17:35)
--- NOTE | 2025-02-16 17:38 | CARDIOLOGY REPORT ---
APPROVED REPORT EXAM: Limited 2D, Doppler, and color-flow Echocardiogram. Patient Location: [address] Heart Rate: 80's bpm Rhythm: SINUS Indications HYPERTENSION DIABETES MELLITUS SMOKER Insulation Cutter And Former: Martir KC MD Previous echo: NONE AVAILABLE (AFTER HOURS) 2D Dimensions IVSd 1.0 (0.7-1.1cm) LVDd 3.0 cm PWd 1.0 (0.7-1.1cm) IVSs 1.3 (0.8-1.2cm) LVDs 2.0 (2.5-4.0cm) PWs 1.3 (0.8-1.2cm) LVOT Diameter 2.02 (1.8-2.4cm) LVEF(%) 65.2 (>50%) FS (%) 34.5 % SV 24.1 ml CO 2.0 L/min M-Mode Dimensions Left Atrium(MM) 5.37 (2.5-4.0cm) Aortic Root 3.46 (2.2-3.7cm) Aortic Cusp Exc 1.95 (1.5-2.0cm) Tricuspid Valve TR P. Velocity 253 cm/s RAP ESTIMATE 10 mmHg TR Peak Gr. 26 mmHg RVSP 36 mmHg LEFT VENTRICLE Normal LV size and wall thickness. Overall systolic function is normal. LVEF is 60-65%. RIGHT VENTRICLE RV appears normal size and function. Elevated right heart pressures with an RVSP of 36 mmHG. ATRIA Left atrium is moderately dilated. AORTIC VALVE Trileaflet AV appears sclerotic without obvious stenosis. No insufficiency. No diagnostic Doppler evaluation due to poor imaging windows and severe patient bruising. MITRAL VALVE Mild MV annular calcification without obvious stenosis. Trace regurgitation. No diagnostic Doppler evaluation due to poor imaging windows and severe patient bruising. TRICUSPID VALVE TV appears structurally normal with trace regurgitation. PULMONIC VALVE Normal PV without stenosis, physiologic insufficiency. GREAT VESSELS The aortic root is normal in size. PERICARDIUM Normal pericardium. No effusion. Other Information Study Quality: Technically Limited due to severe brusing in apical window from fall- unable to obtain images and no subcostal window. Conclusion Normal LV size and wall thickness. Overall systolic function is normal. LVEF is 60-65%. RV appears normal size and function. Elevated right heart pressures with an RVSP of 36 mmHG. Left atrium is moderately dilated. Trileaflet AV appears sclerotic without obvious stenosis. No insufficiency. No diagnostic Doppler evaluation due to poor imaging windows and severe patient bruising. Mild MV annular calcification without obvious stenosis. Trace regurgitation. No diagnostic Doppler evaluation due to poor imaging windows and severe patient bruising. TV appears structurally normal with trace regurgitation. Normal pericardium. No effusion.
[2025-02-16] MEDS: lactobacillus rhamnosus 10,000 MMU CELLS/CAPSULE PO SCH (20:28)
[2025-02-17] VITALS (8 sets, daily range): BP systolic 145–164; BP diastolic 83–89; PULSE 70–92; RESP 14–24; TEMP 97.4–98.5; O2SAT 95–98
[2025-02-17 06:02] LABS: MEAN PLATELET VOLUME 8.6 FL (7.4-10.4); RED CELL DISTRIBUTION WIDTH 14.1 % (11.5-14.5)
[2025-02-17 06:24] LABS: CREATININE 0.71 MG/DL (0.60-1.10); PHOSPHORUS 2.2 MG/DL (2.3-4.5); TOTAL CARBON DIOXIDE 27.2 MMOL/L (24-32); eCRCL 83 ML/MIN; eGFR > 90 ML/MIN
[2025-02-17] MEDS ORDERED: non-formulary drug (Amlodipine Besylate 1 TABLET) PO SCH (08:00)
[2025-02-17] MEDS ORDERED: VALSARTAN PO SCH (08:00)
--- NOTE | 2025-02-17 14:20 | PROGRESS NOTE- Residence ---
Progress Note - Resident Providers to CC Resident Creating Document: REYNOLD MALDONADO, RES ~ Antibiotic Timeout Antibiotic Ordered?: Yes Subjective Patient seen and examined at the bedside today. The patient reported that the left shoulder pain has improved a little when compared to yesterday. Denied any new concerns or complaints. No acute overnight events were reported. Objective Vital Signs Date Time Temp Pulse Resp B/P (MAP) Pulse Ox O2 Delivery O2 Flow Rate FiO2 02/17/25 10:00 98.3 88 14 157/86 (109) 95 Room Air 02/17/25 06:54 21 02/15/25 16:59 0 Result Diagram: 02/17/25 0456 02/17/256 General: Patient is alert and oriented x 4, significant improvement in mentation HEENT: Conjunctive are pink, sclerae clear, no icterus, pupil is equal in both sides, arcus senilis, right occipital swelling Neck: Supple, no JVD, no lymphadenopathy and thyromegaly. Chest: [place] shaped chest,Equal air entry on both lungs, no additional sounds no rhonchi no wheezing at the moment. Cardiovascular: S1-S2 regular sinus rhythm and, regular rate, no gallops, no rubs, no murmurs Abdomen: No visible peristalsis, Bowel sounds present on auscultation, soft, no tenderness, no guarding, no rigidity midline abdominal scar present Extremities: Bilateral lower extremities wasting, chronic venous stasis Neurologic: Mental status: alert and conscious Cranial nerves I-XII: Normal. Motor system: Preserved power, coordination, bilateral tremors noted, strength 5/5 in four extremities. Left shoulder unable to exhibit any movement due to a fall Sensory system: Preserved temperature, pain and vibration sensation. 2+ deep tendon reflexes in biceps, triceps, quadriceps. Negative Babinski. Cerebellar: No nystagmus, dysdiadochokinesia, normal [id number] testing. Musculoskeletal: Bilateral eugenia's and Heberden's nodules noted Right shoulder restricted range of motion Skin: Bruises noted on the left shoulder. Dry scaling with the ulceration noted in bilateral lower extremities. Coagulation Studies Laboratory Tests Test 02/15/25 15:09 Prothrombin Time 10.5 SECONDS (9.0-12.0) INR International Normalized Ratio 1.0 INR Activated Partial Thromboplast Time 26 SECONDS (22-32) D-Dimer 4.36 MG/L FEU (0-0.50) H D-Dimer Comment Coagulation Comments Assessment Assessment 79 years old male with past medical history of hypertension, hyperlipidemia, diabetes and insomnia is admitted in the hospital for evaluation and management of sepsis secondary to urinary tract infection related to chronic indwelling Grey catheter, acute metabolic encephalopathy, rhabdomyolysis and mechanical fall. Plan Plan 1. Sepsis 2/2 catheter associated UTI Patient has chronic indwelling catheter in place due to neurogenic bladder The patient's urine culture is growing Proteus mirabilis and Enterococcus faecalis. Changed antibiotics from IV meropenem to ciprofloxacin 400 mg IV b.i.d. based on culture and sensitivity. Blood cultures no growth after one day. The patient's procalcitonin is trending down. Lactic acid is within normal limits. We will continue supportive care. We will follow up 2. Acute metabolic encephalopathy Secondary to urinary tract infection Mechanical fall Treating the underlying urinary tract infection to help with acute metabolic encephalopathy. Mentation improving. No fractures noted on the shoulder x-ray but the patient continues to have severe pain with minimal movement of the left shoulder. Follow up with the MRI of the shoulder. Supportive care with pain management as needed Pike and breakthrough pain with IV morphine. Physical therapy evaluation and treatment. 3. Rhabdomyolysis Secondary to mechanical fall Mild hypokalemia-resolved The patient's creatinine kinase is trending down. We will continue to follow the creatinine kinase daily. No other significant electrolyte abnormalities noted. Continue fluids at 100 cc/hour. We will continue to monitor the patient's electrolytes and renal function test closely. 4. Hypertension Patient has a history of hypertension, continue patient's home medication valsartan 320 mg-not available in the pharmacy so converted to losartan 100 mg, metoprolol 25 mg q.12h, amlodipine 10 mg Echocardiogram reported normal EF of 60-65% 5. Hyperlipidemia Continue patient's home medication pravastatin 20 mg from tomorrow; pravastatin unavailable in the pharmacy Continue atorvastatin 5 mg p.o. daily 6. Type 2 diabetes mellitus on oral hypoglycemic Patient is on home medication metformin 500 mg t.i.d. and held patient's home medication dapagliflozin 10 mg in view of his UTI and indwelling catheter HGB A1c well controlled and within normal limits, 5.7 Plan Initiated the patient on hyperglycemia hypoglycemic protocol, 75 g carb controlled diet in place 7. History of insomnia Patient is on home medications Seroquel 25 mg once daily Continue Seroquel 25 mg once daily 8. Benign prostatic hyperplasia Continue patient's home medication tamsulosin 0.4 mg 9. History of back pain, status post surgery in 2022(unsure about what surgery) Continue patient's home medication tramadol 50 mg b.i.d., duloxetine 60 mg 10. History of neurogenic bladder Chronic indwelling catheter; continue home medication tolterodine tartrate 4 mg once daily 11. Active nicotine use disorder Discussed smoking cessation with the patient including the risk continued smoking with the patient including: lung cancer, stroke, heart attack and poor wound healing. 12. Social concerns: Patient lives by himself, uses a walker for short distances wheelchair for longer distances. Patient has had chronic back pain for a while and used to get pain injections from [facility], during one of the episode patient lost control of his bladder, post which he underwent MRI- which showed he had possible disc prolapse and neurogenic bladder 13. Elevated D-dimer The patient has a elevated D-dimer-4.36. Wells score shows low risk-1.5 The patient does not have any signs or symptoms of pulmonary embolism. There is very low suspicion of pulmonary embolism in the patient. We will not pursue testing for a possible pulmonary embolism as there is very low risk and low chance of the patient having a pulmonary embolism. We will continue to monitor. Code Status: Full code DVT Prophylaxis: Lovenox Lines/Tubes: PIV Nutrition: 2 g salt restricted diet/75g carb controlled diet PT:yes Prognosis: Guarded POA: Daughter ERIC [phone], patient has another daughter who is his IHSS, patient also has home services. CODE STATUS: DVT prophylaxis: GI prophylaxis: Diet: Disposition: Continue medical management. Follow up with the MRI. Physical therapy evaluation and treatment to continue. Most likely the patient will be discharged home versus rehab in the next 24-48 hours. Reynold Maldonado MD Internal Medicine Resident, PGY-3 Date of Service: Feb 17, 2025 Billing Provider: ASHLEY MONAHAN MD,REYNOLD AMBROSIO, RES Feb 17, 2025 14:20
--- NOTE | 2025-02-17 14:53 | RADIOLOGY REPORT ---
CLINICAL INFORMATION: Shoulder injury, frozen shoulder. TECHNIQUE: Multisequence multiplanar MRI images of the left shoulder were obtained without contrast. COMPARISON: Radiographs dated 02/15/2025. FINDINGS: Motion limited study. Acromioclavicular joint: There is moderate acromioclavicular hypertrophy and moderate edema. There is Type 2 acromion. Moderate fluid in the subacromial / subdeltoid bursa. Rotator cuff tendons: Full-thickness full width tear of the supraspinatus tendon from its insertion, with retraction of torn tendon fibers to the level of the glenohumeral joint. Full-thickness tear involving the anterior fibers of the infraspinatus tendon from its insertion, with retraction of torn tendon fibers to the level of the glenohumeral joint. There are intact posterior fibers of the infraspinatus tendon at the insertion. Focal full-thickness tear involving the mid to cephalad fibers of the subscapularis tendon measuring approximately 1.7 cm in craniocaudal dimension, with retraction of torn tendon fibers to the level of the glenohumeral joint. Teres minor tendon is poorly visualized, may be obscured by motion artifact. Biceps tendon: Long head biceps tendon is not visualized at its origin or along its intra-articular course, suspected tear, although poorly evaluated due to motion artifact. Labrum: Tear of the superior and posterior superior labrum Bones: No fracture or focal marrow contusion. There is superior subluxation of the humeral head due to the rotator cuff tear, abutting the acromion. Muscles: Limited evaluation due to artifact. Likely it least [id number] fatty changes in the supraspinatus and subscapularis muscles. Other: Moderate glenohumeral joint effusion. IMPRESSION: 1. Limited examination due to artifact. 2. Full-thickness tears involving the supraspinatus, subscapularis, and teres minor tendons. 3. Suspected full-thickness rupture of the proximal long head biceps tendon, although poorly evaluated due to motion artifact. 4. Tear of the superior and posterior superior labrum. 5. Moderate acromioclavicular hypertrophy. 6. Additional findings as described above.
[2025-02-17] MEDS: magnesium hydroxide 30ml (MOM) UD suspension PO PRN (15:34)
[2025-02-17] MEDS: ciprofloxacin lact 400MG/200ML 200 ML IV SCH (20:58)
[2025-02-18 06:00] VITALS: BP 175/89; PULSE 78; RESP 16; TEMP 96.9; O2SAT 96
[2025-02-18 06:02] LABS: MEAN PLATELET VOLUME 7.8 FL (7.4-10.4); RED CELL DISTRIBUTION WIDTH 14.3 % (11.5-14.5)
[2025-02-18 06:29] LABS: CREATININE 0.74 MG/DL (0.60-1.10); PHOSPHORUS 2.4 MG/DL (2.3-4.5); TOTAL CARBON DIOXIDE 28.4 MMOL/L (24-32); eCRCL 80 ML/MIN; eGFR > 90 ML/MIN
[2025-02-18 08:00] VITALS: BP_SYST 136; BP_SYST 144; BP_SYST 148; BP_DIAS 77; BP_DIAS 78; BP_DIAS 82; PULSE 83; PULSE 90; PULSE 94
[2025-02-18] MEDS ORDERED: polyethylene glycol 3350 17gm powd pack PO PRN (08:55)
[2025-02-18 10:00] VITALS: BP 132/81; PULSE 76; RESP 18; TEMP 97.8; O2SAT 97
--- NOTE | 2025-02-18 14:24 | PROGRESS NOTE- Residence ---
Progress Note - Resident Providers to CC Resident Creating Document: REYNOLD MALDONADO, RES ~ Antibiotic Timeout Antibiotic Ordered?: Yes Subjective Patient is seen and examined at the bedside today. He reported that he has not had a bowel movement in the last three days. He denied any abdominal pain, nausea, vomiting. They reported that he has been passing flatus. Denied any other concerns or complaints. No other overnight events were reported. Objective Vital Signs Date Time Temp Pulse Resp B/P (MAP) Pulse Ox O2 Delivery O2 Flow Rate FiO2 02/18/25 10:00 97.8 76 18 132/81 (98) 97 Room Air 02/17/25 06:54 21 02/15/25 16:59 0 Result Diagram: 02/18/25 0536 02/18/25 0536 General: Patient is alert and oriented x 4, significant improvement in mentation HEENT: Conjunctive are pink, sclerae clear, no icterus, pupil is equal in both sides, arcus senilis, right occipital swelling Neck: Supple, no JVD, no lymphadenopathy and thyromegaly. Chest: [place] shaped chest,Equal air entry on both lungs, no additional sounds no rhonchi no wheezing at the moment. Cardiovascular: S1-S2 regular sinus rhythm and, regular rate, no gallops, no rubs, no murmurs Abdomen: No visible peristalsis, Bowel sounds present on auscultation, soft, no tenderness, no guarding, no rigidity midline abdominal scar present Extremities: Bilateral lower extremities wasting, chronic venous stasis Neurologic: Mental status: alert and conscious Cranial nerves I-XII: Normal. Motor system: Preserved power, coordination, bilateral tremors noted, strength 5/5 in four extremities. Left shoulder unable to exhibit any movement due to a fall Sensory system: Preserved temperature, pain and vibration sensation. 2+ deep tendon reflexes in biceps, triceps, quadriceps. Negative Babinski. Cerebellar: No nystagmus, dysdiadochokinesia, normal [id number] testing. Musculoskeletal: Bilateral eugenia's and Heberden's nodules noted Right shoulder restricted range of motion Skin: Bruises noted on the left shoulder. Dry scaling with the ulceration noted in bilateral lower extremities. Coagulation Studies Laboratory Tests Test 02/15/25 15:09 Prothrombin Time 10.5 SECONDS (9.0-12.0) INR International Normalized Ratio 1.0 INR Activated Partial Thromboplast Time 26 SECONDS (22-32) D-Dimer 4.36 MG/L FEU (0-0.50) H D-Dimer Comment Coagulation Comments Assessment Assessment 79 years old male with past medical history of hypertension, hyperlipidemia, diabetes and insomnia is admitted in the hospital for evaluation and management of sepsis secondary to urinary tract infection related to chronic indwelling Grey catheter, acute metabolic encephalopathy, rhabdomyolysis and mechanical fall. Plan Plan 1.Sepsis 2/2 catheter associated UTI Acute metabolic encephalopathy secondary to above Patient has chronic indwelling catheter in place due to neurogenic bladder The patient's urine culture is growing Proteus mirabilis and Enterococcus faecalis. Changed antibiotics from IV meropenem to ciprofloxacin 400 mg IV b.i.d. based on culture and sensitivity. Blood cultures no growth after two days. The patient's procalcitonin is trending down. Lactic acid is within normal limits. We will continue supportive care. We will follow up 2.Mechanical fall Left rotator cuff tear The MRI of the shoulder showing full-thickness tear of the supraspinatus, subscapularis and teres minor. The on-call orthopedic surgeon Dr. Hawk was consulted. Per Dr. Hawk the patient can be managed currently with a sling. Per Dr. Hawk he will continue to follow the patient outpatient and manage the rotator cuff tear in the office. We will continue supportive care with pain management and sling. Continue PT evaluation and treatment. PT has recommended that the patient to be discharged to post acute care for further care and recovery. 3. Rhabdomyolysis Secondary to mechanical fall Mild hypokalemia-resolved The patient's creatinine kinase is trending down. We will continue to follow the creatinine kinase daily. No other significant electrolyte abnormalities noted. Continue fluids at 100 cc/hour. We will continue to monitor the patient's electrolytes and renal function test closely. 4. Hypertension Patient has a history of hypertension, continue patient's home medication valsartan 320 mg-not available in the pharmacy so converted to losartan 100 mg, metoprolol 25 mg q.12h, amlodipine 10 mg Echocardiogram reported normal EF of 60-65% 5. Hyperlipidemia Continue patient's home medication pravastatin 20 mg from tomorrow; pravastatin unavailable in the pharmacy Continue atorvastatin 5 mg p.o. daily 6. Type 2 diabetes mellitus Patient is on home medication metformin 500 mg t.i.d. and held patient's home medication dapagliflozin 10 mg in view of his UTI and indwelling catheter HGB A1c well controlled and within normal limits, 5.7 Plan Initiated the patient on hyperglycemia hypoglycemic protocol, 75 g carb controlled diet in place 7. History of insomnia Patient is on home medications Seroquel 25 mg once daily Continue Seroquel 25 mg once daily 8. Benign prostatic hyperplasia Continue patient's home medication tamsulosin 0.4 mg 9. History of back pain, status post surgery in 2022(unsure about what surgery) Continue patient's home medication tramadol 50 mg b.i.d., duloxetine 60 mg 10. History of neurogenic bladder Chronic indwelling catheter; continue home medication tolterodine tartrate 4 mg once daily 11. Active nicotine use disorder Discussed smoking cessation with the patient including the risk continued smoking with the patient including: lung cancer, stroke, heart attack and poor wound healing. 12. Social concerns Patient lives by himself, uses a walker for short distances wheelchair for longer distances. Patient has had chronic back pain for a while and used to get pain injections from [facility], during one of the episode patient lost control of his bladder, post which he underwent MRI-which showed he had possible disc prolapse and neurogenic bladder 13. Elevated D-dimer The patient has a elevated D-dimer-4.36. Wells score shows low risk-1.5 The patient does not have any signs or symptoms of pulmonary embolism. There is very low suspicion of pulmonary embolism in the patient. We will not pursue testing for a possible pulmonary embolism as there is very low risk and low chance of the patient having a pulmonary embolism. We will continue to monitor. 14. Constipation The patient is started on docusate 100 mg p.o. b.i.d. MiraLax 17 g HS prn for constipation. For severe constipation we will give bisacodyl suppository. Code Status: Full code DVT Prophylaxis: Lovenox Lines/Tubes: PIV Nutrition: 2 g salt restricted diet/75g carb controlled diet PT:yes Prognosis: Guarded POA: Daughter ERIC [phone], patient has another daughter who is his IHSS, patient also has home services. Disposition: Continue medical management. Patient we will be discharged to a post acute care as per physical therapy recommendations in the next 24 hours. Reynold Maldonado MD Internal Medicine Resident, PGY-3 Date of Service: Feb 18, 2025 Billing Provider: ASHLEY MONAHAN MD,REYNOLD AMBROSIO, RES Feb 18, 2025 14:24
[2025-02-18 18:00] VITALS: BP 161/82; PULSE 81; RESP 20; TEMP 97.5; O2SAT 95
[2025-02-18 20:00] VITALS: BP_SYST 154; BP_SYST 166; BP_SYST 168; BP_DIAS 83; BP_DIAS 87; BP_DIAS 89; PULSE 104; PULSE 85; PULSE 94
[2025-02-18 22:00] VITALS: BP 168/83; PULSE 82; RESP 13; TEMP 98.1; O2SAT 95
[2025-02-18] MEDS: polyethylene glycol 3350 17gm powd pack PO SCH (22:11)
[2025-02-18] MEDS: docusate sod 100mg capsule PO SCH (22:11)
[2025-02-19] MEDS: hydrALAZINE 20mg/ml inj. IV PRN (02:28)
[2025-02-19 06:00] VITALS: BP 158/80; PULSE 63; RESP 12; TEMP 97; O2SAT 94
[2025-02-19 06:23] LABS: MEAN PLATELET VOLUME 7.5 FL (7.4-10.4); RED CELL DISTRIBUTION WIDTH 14.3 % (11.5-14.5)
[2025-02-19 06:47] LABS: CREATININE 0.56 MG/DL (0.60-1.10); PHOSPHORUS 3.0 MG/DL (2.3-4.5); TOTAL CARBON DIOXIDE 26.8 MMOL/L (24-32); eCRCL 105 ML/MIN; eGFR > 90 ML/MIN
[2025-02-19 08:00] VITALS: BP_SYST 129; BP_SYST 155; BP_SYST 158; BP_DIAS 73; BP_DIAS 80; PULSE 63; PULSE 80; PULSE 89; RESP 16; O2SAT 94
[2025-02-19] MEDS: bisacodyl 10mg suppository rectal RC PRN (09:49)
[2025-02-19 10:00] VITALS: BP_SYST 129; BP_SYST 155; BP_SYST 158; BP_DIAS 73; BP_DIAS 75; BP_DIAS 80; PULSE 63; PULSE 77; PULSE 80; PULSE 89; RESP 18; TEMP 98.1; O2SAT 95
--- NOTE | 2025-02-19 18:01 | DISCHARGE SUMMARY-Residence ---
Discharge Summary Providers to Resident Creating Document: HODAN TORRES, RES ~ Discharge Summary Admission Diagnosis: Acute metabolic encephalopathy, UTI Hospital Course DATE OF ADMISSION: 02/15/2025 DATE OF DISCHARGE: 02/19/2025 Left upper extremity MRI: IMPRESSION: 1. Limited examination due to artifact. 2. Full-thickness tears involving the supraspinatus, subscapularis, and teres m inor tendons. 3. Suspected full-thickness rupture of the proximal long head biceps tendon, although poorly evaluated due to motion artifact. 4. Tear of the superior and posterior superior labrum. 5. Moderate acromioclavicular hypertrophy. 6. Additional findings as described above. ECHO: Conclusion Normal LV size and wall thickness. Overall systolic function is normal. LVEF is 60-65%. RV appears normal size and function. Elevated right heart pressures with an RVSP of 36 mmHG. Left atrium is moderately dilated. Trileaflet AV appears sclerotic without obvious stenosis. No insufficiency. No diagnostic Doppler evaluation due to poor imaging windows and severe patient bruising. Mild MV annular calcification without obvious stenosis. Trace regurgitation. No diagnostic Doppler evaluation due to poor imaging windows and severe patient bruising. TV appears structurally normal with trace regurgitation. Normal pericardium. No effusion. CT scan of the head: IMPRESSION: Right occipital scalp swelling. Moderate generalized volume loss with chronic small vessel ischemic change. No acute intracranial abnormality. 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 Old right parietal craniotomy. Discharge Diagnosis\Comment: Sepsis , POA 2/2 catheter associated urinary tract infection Mechanical fall Left rotator cuff tear Acute metabolic encephalopathy secondary to sepsis Rhabdomyolysis Mild hypokalemia Hypertension Hyperlipidemia Type 2 diabetes mellitus Insomnia Benign prostatic hyperplasia Chronic back pain Neurogenic bladder with chronic indwelling catheter Nicotine use disorder Operations\Procedures: None Consultants: None Complications: None Condition on DC: Stable for transfer Discharge Summary: History of Present Illness by Dr. ISIDRO: An 79-year-old male patient who lives by himself was brought to the ED by his daughter after he was found lying on his floor. Patient's daughter last spoke with him yesterday evening and since then he was not answering any calls and she visited him and found him lying on the floor. Patient did not lose consciousness and was awake when his daughter came. Patient stated that he was trying to get up from his wheelchair but lost balance and fell on the ground but could not get himself up nor could he answer his phone which was little away from him. Patient denied any chest pain,, shortness of breath , loss of consciousness and syncopal attacks. His past medical history includes hypertension, hyperlipidemia, diabetes mellitus on oral hypoglycemics. Patient has an indwelling catheter and is wheelchair-bound most of the time Patient lives by himself, uses a walker for moving around the house and uses a wheelchair for other activities. Patient's daughters stays across the street and visits him once a while, patient has home health services who come visit with the patient change his catheter as required. Patient's daughter is his [facility] Patient's primary care doctor is from [facility], patient's pipeline inspector is Dr. Bridgette Ceja Patient visits Dr. Ceja once every year for regular cardiac checkup. He was admitted in 2023 with chest pain and a Lexiscan was done at the point which was negative Course in the hospital: On initial evaluation the patient was found to be septic secondary to catheter associated urinary tract infection. His urine analysis was positive for occult blood, leukocyte esterase and too numerous to count WBCs with 4+ bacteriuria. Blood cultures and urine cultures were ordered, IV fluid resuscitation was done in view of the patient's sepsis in the patient was started on broad-spectrum IV antibiotic - meropenem in view of the chronic indwelling Grey catheter. The patient was altered most likely due to acute metabolic encephalopathy secondary to the sepsis a CT scan of the head was done which ruled out any acute intracranial abnormalities. He was also found to be having rhabdomyolysis most likely secondary to the mechanical fall with a significantly elevated creatinine kinase of 3000. Patient was treated with continued supportive care, follow up of his blood cultures were significant for Proteus mirabilis and Enterococcus faecalis which was sensitive to ciprofloxacin and the patient's antibiotics were switched accordingly. His mentation improved, the creatinine kinase levels normalized and the patient's rhabdomyolysis was resolved. He was found to have difficulty and pain while using his left shoulder with restricted range of movements both active and passive. MRI of the shoulder was done which showed rotator cuff tear. The on-call orthopedic surgeon Dr. Hawk was consulted. A sling was recommended by Dr. Hawk and he also recommended outpatient follow up at his office for further care and management of the rotator cuff tear. The patient has been informed to follow up with Dr. Hawk for further care and management for discharge. Physical therapy evaluation treatment reported that the patient needs a post acute care. The patient lives alone was not a safe discharge and was recommended to go to a post acute care. The patient's condition improved significantly and is being discharged to [facility] post acute care for further care and recovery. The patient has been discharged on ciprofloxacin 500 mg p.o. b.i.d. for the urinary tract infection. Examination at discharge: General: Patient is alert and oriented x 4 HEENT: Conjunctive are pink, sclerae clear, no icterus, pupil is equal in both sides, arcus senilis, right occipital swelling Neck: Supple, no JVD, no lymphadenopathy and thyromegaly. Chest: [place] shaped chest,Equal air entry on both lungs, no additional sounds no rhonchi no wheezing at the moment. Cardiovascular: S1-S2 regular sinus rhythm and, regular rate, no gallops, no rubs, no murmurs Abdomen: No visible peristalsis, Bowel sounds present on auscultation, soft, no tenderness, no guarding, no rigidity midline abdominal scar present Extremities: Bilateral lower extremities wasting, chronic venous stasis Neurologic: Mental status: alert and conscious Cranial nerves I-XII: Normal. Motor system: Preserved power, coordination, bilateral tremors noted, strength 5/5 in four extremities. Left shoulder unable to exhibit any movement due to a fall Sensory system: Preserved temperature, pain and vibration sensation. 2+ deep tendon reflexes in biceps, triceps, quadriceps. Negative Babinski. Cerebellar: No nystagmus, dysdiadochokinesia, normal [id number] testing. Musculoskeletal: Bilateral eugenia's and Heberden's nodules noted Right shoulder restricted range of motion Skin: Bruises noted on the left shoulder. Dry scaling with the ulceration noted in bilateral lower extremities. Laboratory Tests Test 02/17/25 21:02 02/18/25 05:36 02/18/25 07:22 02/18/25 12:13 Glucometer 144 mg/dl 129 mg/dl 160 mg/dl White Blood Count 6.9 X10'3 Red Blood Count 4.96 X10'6 Hemoglobin 15.4 g/dl Hematocrit 45.1 % Mean Corpuscular Volume 91.0 FL Mean Corpuscular Hemoglobin 31.2 PG Mean Corpuscular Hemoglobin Concent 34.2 g/dL Red Cell Distribution Width 14.3 % Platelet Count 192 X10'3 Mean Platelet Volume 7.8 FL Neutrophils (%) (Auto) 64.4 % Lymphocytes (%) (Auto) 18.2 % Monocytes (%) (Auto) 12.4 % Eosinophils (%) (Auto) 4.3 % Basophils (%) (Auto) 0.7 % Neutrophils # (Auto) 4.5 X10'3 Lymphocytes # (Auto) 1.3 X10'3 Monocytes # (Auto) 0.9 X10'3 Eosinophils # (Auto) 0.3 X10'3 Basophils # (Auto) 0.0 X10'3 CBC Comment Sodium Level 138 MMOL/L Potassium Level 3.9 MMOL/L Chloride Level 102 MMOL/L Carbon Dioxide Level 28.4 MMOL/L Anion Gap 8 Blood Urea Nitrogen 14 MG/DL Creatinine 0.74 MG/DL Estimated GFR/1.73 m2 > 90 ML/MIN BUN/Creatinine Ratio 18.9 Glucose Level 123 MG/DL Calcium Level 8.6 MG/DL Phosphorus Level 2.4 MG/DL Magnesium Level 2.0 MG/DL Total Bilirubin 0.9 MG/DL Aspartate Amino Transf (AST/SGOT) 46 U/L Alanine Aminotransferase (ALT/SGPT) 55 U/L Alkaline Phosphatase 105 IU/L Total Creatine Kinase 540 U/L Total Protein 7.4 G/DL Albumin 3.0 G/DL Globulin 4.4 G/DL Albumin/Globulin Ratio 0.7 Procalcitonin 0.87 NG/ML Chemistry Comments Test 02/18/25 17:56 02/18/25 20:45 02/19/25 05:52 02/19/25 07:15 Glucometer 152 mg/dl 201 mg/dl 138 mg/dl White Blood Count 6.4 X10'3 Red Blood Count 4.71 X10'6 Hemoglobin 14.7 g/dl Hematocrit 42.7 % Mean Corpuscular Volume 90.5 FL Mean Corpuscular Hemoglobin 31.2 PG Mean Corpuscular Hemoglobin Concent 34.5 g/dL Red Cell Distribution Width 14.3 % Platelet Count 187 X10'3 Mean Platelet Volume 7.5 FL Neutrophils (%) (Auto) 56.7 % Lymphocytes (%) (Auto) 24.5 % Monocytes (%) (Auto) 12.2 % Eosinophils (%) (Auto) 6.0 % Basophils (%) (Auto) 0.6 % Neutrophils # (Auto) 3.6 X10'3 Lymphocytes # (Auto) 1.6 X10'3 Monocytes # (Auto) 0.8 X10'3 Eosinophils # (Auto) 0.4 X10'3 Basophils # (Auto) 0.0 X10'3 CBC Comment Sodium Level 138 MMOL/L Potassium Level 3.8 MMOL/L Chloride Level 104 MMOL/L Carbon Dioxide Level 26.8 MMOL/L Anion Gap 7 Blood Urea Nitrogen 13 MG/DL Creatinine 0.56 MG/DL Estimated GFR/1.73 m2 > 90 ML/MIN BUN/Creatinine Ratio 23.2 Glucose Level 132 MG/DL Calcium Level 8.6 MG/DL Phosphorus Level 3.0 MG/DL Magnesium Level 2.0 MG/DL Total Bilirubin 0.8 MG/DL Aspartate Amino Transf (AST/SGOT) 60 U/L Alanine Aminotransferase (ALT/SGPT) 73 U/L Alkaline Phosphatase 95 IU/L Total Creatine Kinase 219 U/L Total Protein 6.8 G/DL Albumin 2.9 G/DL Globulin 3.9 G/DL Albumin/Globulin Ratio 0.7 Procalcitonin 0.42 NG/ML Chemistry Comments Test 02/19/25 11:44 Glucometer 159 mg/dl *Problems/Diagnosis: (1) Catheter-associated urinary tract infection (2) Sepsis (3) Neurogenic bladder (4) Chronic indwelling Grey catheter (5) Insomnia (6) Hypertension (7) Hyperlipidemia (8) Rhabdomyolysis Status: Acute (9) Metabolic encephalopathy Status: Acute (10) UTI (urinary tract infection) Status: Acute (11) Cellulitis Status: Acute (12) Rotator cuff tear Total Time Spent on D/C: > 30 Minutes Date of Service: Feb 19, 2025 Billing Provider: ASHLEY MONAHAN MD,HODAN AMBROSIO, RES Feb 19, 2025 18:01
== END 2025-02-19 14:30 | DRG 698 ==
LOC: ER 14:52 → ED HOLD 16:23 → ORTHO 4S 19:10
PROVIDERS: ADMIT Family Medicine; ATTEND Family Medicine
DX: T83.511A Infection and inflammatory reaction due to indwelling urethral catheter, initial encounter (principal); A41.9 Sepsis, unspecified organism; G93.41 Metabolic encephalopathy; M62.82 Rhabdomyolysis; N39.0 Urinary tract infection, site not specified; I10 Essential (primary) hypertension; E11.9 Type 2 diabetes mellitus without complications; E87.6 Hypokalemia; M25.512 Pain in left shoulder; N40.0 Benign prostatic hyperplasia without lower urinary tract symptoms; M75.102 Unspecified rotator cuff tear or rupture of left shoulder, not specified as traumatic; G89.29 Other chronic pain; M54.89 Other dorsalgia; N31.8 Other neuromuscular dysfunction of bladder; G47.09 Other insomnia; Z60.2 Problems related to living alone; Y84.6 Urinary catheterization as the cause of abnormal reaction of the patient, or of later complication, without mention of misadventure at the time of the procedure; E78.5 Hyperlipidemia, unspecified; Z99.3 Dependence on wheelchair; Z87.891 Personal history of nicotine dependence; Z79.84 Long term (current) use of oral hypoglycemic drugs; Z79.4 Long term (current) use of insulin; Z79.899 Other long term (current) drug therapy; Y92.89 Other specified places as the place of occurrence of the external cause
CPT/HCPCS: 36415; 70450; 71045; 73030; 73221; 80053; 80061; 81001; 82140; 82550; 82948; 83036; 83605; 83735; 83880; 84100; 84145; 84443; 84484; 85025; 85379; 85610; 85730; 86140; 87040; 87077; 87081; 87088; 87186; 92508; 92616; 93005; 93308; 97116; 97161; 97530; 99285; A4565; C1758; G0378; J0360; J0696; J0744; J1171; J1650; J1815; J2185; J2270; J7030